=== PATIENT | female | born 1990 | race Caucasian/White ===

== ENCOUNTER 2021-01-23 20:40 | Emergency (ER) | payer BC ==
--- NOTE | 2021-01-23 21:26 | EDM.PDOC ---
ED HPI GENERAL MEDICAL PROBLEM - General Chief Complaint: General Stated Complaint: OPEN INCISION Time Seen by Provider: 01/23/21 20:54 Source of Information: Reports: Patient, Old Records History Limitations: Reports: No Limitations - History of Present Illness INITIAL COMMENTS - FREE TEXT/NARRATIVE: Nicky is a 30-year-old female who was presenting to the ED for evaluation of de hiscence of a surgical wound. Patient underwent bilateral breast reduction with bilateral nipple reconstruction on 01/15/2021 for gender dysphoria. The patient was seen in follow-up on 01/18/2021 and was doing well. Today, he started to notice drainage coming from the middle incision under the right breast producing serosanguineous drainage. This 5 days following the removal of the JOHN drains. The patient to try to Steri-Strip the wound edges back together, however, there is sufficient drainage that the Steri-Strips would not stick. The wound edges are endothelialized and the wound measures approximately 3.1 cm gapping approximately 0.6 cm at its middle margin. Overall the incisions are red but not hot, tender, or swollen. There is no evidence of dehiscence anywhere else. There is no significant erythema extending beyond the wound edges. The patient has been afebrile. - Related Data Allergies Allergy/AdvReac Type Severity Reaction Status Date / Time bee venom protein (honey bee) Allergy Anaphylactic Verified 01/23/21 21:03 Shock yellow dye Allergy Hives Verified 01/23/21 21:03 Home Meds: Home Meds Benztropine [Cogentin] 0.5 mg PO BID 01/23/21 [History] Furosemide 40 mg PO DAILY 01/23/21 [History] Lurasidone HCl [Latuda] 60 mg PO DAILY 01/23/21 [History] Omeprazole Magnesium [Prilosec Otc] 20 mg PO BID 01/23/21 [History] Prazosin HCl [Prazosin] 2 mg PO DAILY 01/23/21 [History] QUEtiapine [SEROquel] 200 mg PO DAILY 01/23/21 [History] Testosterone 200 mg PO ASDIRECTED 01/23/21 [History] atoMOXetine [Strattera] 25 mg PO DAILY 01/23/21 [History] busPIRone [Buspar] 30 mg PO BID 01/23/21 [History] clonazePAM [Clonazepam] 0.5 mg PO BID PRN 01/23/21 [History] hydrOXYzine pamoate [Vistaril] 100 mg PO TID 01/23/21 [History] lamoTRIgine [Lamictal XR] 200 mg PO DAILY 01/23/21 [History] medroxyPROGESTERone Acetate [Depo-Provera] 150 mg IM ASDIRECTED 01/23/21 [History] ED ROS GENERAL - Review of Systems Review Of Systems: See Below Constitutional: Reports: No Symptoms HEENT: Reports: No Symptoms Respiratory: Reports: No Symptoms Cardiovascular: Reports: No Symptoms Endocrine: Reports: No Symptoms GI/Abdominal: Reports: No Symptoms : Reports: No Symptoms Musculoskeletal: Reports: No Symptoms Skin: Reports: Erythema, Wound (Dehiscence of the breast reduction surgical wound measuring approximately 3.1 cm under the right breast midclavicular line. There is a small amount of serous drainage from suture on the left breast midclavicular line without evidence for infection.) Neurological: Reports: No Symptoms Psychiatric: Reports: No Symptoms ED EXAM, GENERAL - Physical Exam Exam: See Below Exam Limited By: Intoxication General Appearance: Alert, No Apparent Distress Respiratory/Chest: No Respiratory Distress Cardiovascular: Normal Peripheral Pulses, Regular Rate, Rhythm Skin Exam: Warm, Erythema (Erythema of the surgical wound edges not extending into the skin.), Wound/Incision (The mid section of the surgical wound of the right breast has dehisced measuring 3.1 cm in gapping 0.6 cm. There is significant serosanguineous drainage from this segment suggesting release of a seroma. The wound edges are red but this does not extend into the surrounding tissues. The area is mil). No: Increased Warmth Course - Orders/Labs/Meds Orders: Active Orders 24 hr Category Date Time Status CBC WITH AUTO DIFF [HEME] Stat Lab 01/23/21 21:10 Ordered - Re-Assessments/Exams Free Text/Narrative Re-Assessment/Exam: 01/23/21 21:20 I discussed the case with Dr. Frye from [facility] plastic surgery who is the patient's surgeon. We concur that this is likely an unroofed seroma. He recommends wet-to-dry dressing and continued treatment of the rest of the wound as before. He like to see the patient in the clinic on Monday or Monday for a recheck. As there is no sign for cellulitis right now, antibiotics are contraindicated. I discussed this with the patient and indications to return to the ED were discussed. We will send him out with a sufficient amount of wet to dry dressing material for the weekend. Departure - Departure Time of Disposition: 21:29 Disposition: Home, Self-Care 01 Clinical Impression: Status post bilateral breast reduction Wound dehiscence, surgical Qualifiers: Encounter type: initial encounter Qualified Code(s): T81.31XA - Disruption of external operation (surgical) wound, not elsewhere classified, initial encounter - Discharge Information Instructions: Wound Dehiscence, [id number] Referrals: PCP,None [Primary Care Provider] - Care Plan Goals: Please do the wet-to-dry dressings as instructed by nursing. Follow-up with Dr. Frye at [facility] on Monday or Monday in the clinic. Return to the ER should any increased redness, pain, of the area or tenderness occur which are signs of a developing infection. - Problem List & Annotations (1) Status post bilateral breast reduction SNOMED Code(s): 560417993, 185131519 Code(s): Z98.890 - OTHER SPECIFIED POSTPROCEDURAL STATES Status: Acute Priority: Medium Current Visit: Yes (2) Wound dehiscence, surgical SNOMED Code(s): 864294930 Code(s): T81.31XA - DISRUPTION OF EXTERNAL OPERATION (SURGICAL) WOUND, NEC, INIT Status: Acute Priority: Medium Current Visit: Yes Qualifiers: Encounter type: initial encounter Qualified Code(s): T81.31XA - Disruption of external operation (surgical) wound, not elsewhere classified, initial enc ounter - Problem List Review Problem List Initiated/Reviewed/Updated: Yes - My Orders Last 24 Hours: My Active Orders 01/23/21 21:10 CBC WITH AUTO DIFF [HEME] Stat - Assessment/Plan Last 24 Hours: My Active Orders 01/23/21 21:10 CBC WITH AUTO DIFF [HEME] Stat
== END 2021-01-23 21:46 | disposition home or self-care (01) ==
LOC: JP.ED 20:40
DX: T81.31XA Disruption of external operation (surgical) wound, not elsewhere classified, initial encounter (principal); Z91.030 Bee allergy status; Z91.048 Other nonmedicinal substance allergy status; Z98.890 Other specified postprocedural states
CPT/HCPCS: 36415; 85025; 99282; 99284